=== PATIENT | male | born 1945 | race Caucasian/White ===

== ENCOUNTER 2019-11-10 | Emergency (ER) | payer MEDICARE ==
[2019-11-10] MEDS ORDERED: HYDROCO/APAP1 TA9 PO (14:29)
[2019-11-10] MEDS ORDERED: MOTRIN400 MG PO (15:48)
== END 2019-11-10 14:30 | disposition home or self-care (01) ==
PROC: 2W3QX1Z Immobilization of Right Lower Leg using Splint (ICD-10-PCS; principal; 2019-11-10)
DX: S82.831A Other fracture of upper and lower end of right fibula, initial encounter for closed fracture (principal); S82.54XA Nondisplaced fracture of medial malleolus of right tibia, initial encounter for closed fracture; W01.0XXA Fall on same level from slipping, tripping and stumbling without subsequent striking against object, initial encounter

== ENCOUNTER 2019-11-14 | Emergency (ER) | payer MEDICARE ==
[~2019-11-14] MED LIST: HYDROCO/APAP1 TA9 PO; MOTRIN400 MG PO
== END 2019-11-14 19:02 | disposition home or self-care (01) ==
DX: S82.851A Displaced trimalleolar fracture of right lower leg, initial encounter for closed fracture (principal); X50.0XXA Overexertion from strenuous movement or load, initial encounter; X50.9XXA Other and unspecified overexertion or strenuous movements or postures, initial encounter; Y93.89 Activity, other specified; Y92.009 Unspecified place in unspecified non-institutional (private) residence as the place of occurrence of the external cause

== ENCOUNTER 2020-09-18 16:53 | Observation (INO) | payer MEDICARE ==
[~2020-09-18] VITALS: Ht 170.2 cm; Wt 83.1 kg
--- NOTE | 2020-09-18 16:53 | NUR ---
PT ARRIVED WITH MUFFLED VOICE BECAUSE LIPS AND RIGHT SIDE OF MOUTH WAS SWOLLEN. SKIN IS TAUT FROM THE SWELLING. PT HAS HIVES ALL OVER BODY. PT AMBULATED TO ROOM WITH STEADY GAIT. AIRWAY PATENT SOLU MEDROL 125 MG IV 1700 BENADRYL 50 MG IV 1700 EPI SQ 0.3 ML 1705 PEPSID 40 MG IV 1700 PT AOX4. STATES THAT HE IS NOT SURE WHAT CAUSED HIS REACTION. PT SHOWED ME A LIST THAT DID NOT CONTAIN HIS BP MEDS. WILL CALL PHARMACY TO CLARIFY MEDS.
[2020-09-18] MEDS ORDERED: LISINOPRIL20 MG PO (17:39)
--- NOTE | 2020-09-18 18:19 | NUR ---
Reassessment of patient completed. No distress noted.
--- NOTE | 2020-09-18 19:03 | NUR ---
PT HAS REFUSED TO BE TRANSFERED FROM [facility] HE IS WILLING TO BE ADMITTED HERE BUT OTHERWISE HE IS LEAVING [facility] AWARE I ADVISED HIM OF THE DANGERS AND HE IS WILLING TO ACCEPT THE OUTCOME
--- NOTE | 2020-09-18 19:47 | NUR ---
PATIENT UP TO BATHROOM WITHOUT ASSIST. AWARE OF ADMISSION AND PENDING TRANSPORT.
[2020-09-18 20:05] VITALS: BP 111/66
--- NOTE | 2020-09-18 20:13 | NUR ---
REPORT CALLED TO ICU PT TRANSPORTED TO ROOM 4 OF ICU
--- NOTE | 2020-09-18 21:15 | NUR ---
PT ARRIVED TO FLOOR AT [facility] AND WAS PLACED IN ICU4. PT WAS HOOKED UP TO TELE FOR MONITORING. IV SITE TO [facility], SALINE LOCKED. PT DENIES ANY SIGNIFICANT FAMILY HISTORY. PT DOES NOT HAVE ORDERS FOR ANY MEDICATIONS AT THIS TIME. CARDIAC, PULMONARY, AND GI ASSESSMENTS ARE NEGATIVE FOR COMPLICATIONS AT THIS TIME. NURSE COOKED PT A TV DINNER SINCE HE STATED HE HASN'T EATEN IN 2 DAYS. PT ON REGULAR DIET. PT RESTING QUIETLY IN BED. ALL NEEDS MET. BED IN THE LOWEST POSITION, CALL LIGHT WITHIN REACH, PT ADVISED ON ASKING FOR HELP WHEN NEEDED. WILL MONITOR
--- NOTE | 2020-09-18 23:02 | NUR ---
PT RESTING QUIETLY WITH EYES CLOSED, NO COMPLAINTS VOICED. CALL LIGHT WITHIN REACH, REDUCATED ON THE IMPORTANCE OF ASKING FOR HELP BEFORE AMBULATING. PT VERBALIZED UNDERSTANDING. WILL MONITOR.
[2020-09-19] VITALS: BP 109/71
--- NOTE | 2020-09-19 00:01 | NUR ---
NOTED THAT ADMITTING ORDER FOR BENADRYL IV NEEDED TO BE CLARIFIED. CALLED ADMITTING PHYSICIAN AND CLARIFIED BENADRYL 25MG IV Q6HRS PRN FOR SWELLING AND ITCHING. ORDER FAXED TO PHARMACY. PENDING CORRECTION TO MAR AT THIS TIME. PT DENIES NEED FOR BENDADRYL AT THIS TIME. WILL MONITOR.
--- NOTE | 2020-09-19 00:38 | NUR ---
PT COMPLAINED OF ITCHING OF THE FACE, UPPER LIP REMAINS SLIGHTLY SWOLLEN. ADMINSTERED IV BENADRYL PER ORDER. PT TOLERATED WELL. WILL MONITOR
--- NOTE | 2020-09-19 01:43 | NUR ---
Pt in bed comfortable at this time, pt is reporting he is having trouble sleeping. Nurse suggested some calming techniques and repositioning. PRN BENADRYL EFFECTIVE FOR ITCHING. WILL MONITOR.
--- NOTE | 2020-09-19 03:58 | NUR ---
PT IS RESTING QUIELY IN BED WITH EYES CLOSED. NO S/S OF DISTRESS NOTED. NO COMPLAINTS VOICED. SLIGHT SWELLING REMAINS TO UPPER LIP, AIRWAY IS PATENT. WILL MONITOR
[2020-09-19 04:00] VITALS: BP 96/63
[2020-09-19 05:03] LABS: HEMATOCRIT 39.9 % (39.0-50.0); HEMOGLOBIN 13.5 g/dl (14.0-18.0); IMMATURE GRANULOCYTES 0.7 % (0.0-5.0); MEAN CELL VOLUME 84.7 fL CALC (80.0-100.0); MEAN CORPUSCULAR HGB 28.7 pG CALC (26.0-32.0); MEAN CORPUSCULAR HGB CONC 33.8 g/dL CAL (32.0-36.0); NEUT# 4.68 thou/uL (1.82-7.42); RED BLOOD COUNT 4.71 mill/uL (4.70-6.10); RED CELL DISTRI WIDTH 13.2 % (11.5-15.5)
[2020-09-19 05:24] LABS: ANION GAP 15 (6-22 (CALC)); BUN 28 mg/dL (8-23); BUN/CREATININE RATIO 22 (12-20 (CALC)); CARBON DIOXIDE 20 mmol/l (22-30); CHLORIDE 102 mmol/l (95-108); CREATININE 1.3 mg/dL (0.7-1.3); GFR 54 ML/MIN (>=60 (CALC)); GFR FOR AFR.AMER. > 60 ML/MIN (>=60 (CALC)); POTASSIUM 4.9 mmol/l (3.5-5.1); SODIUM 131 mmol/l (137-146)
--- NOTE | 2020-09-19 05:50 | NUR ---
PT IN BED WITH HOB ELEVATED. NO COMPLAINTS VOICED. IN GREAT SPIRITS. SLIGHT SWELLING TO UPPER LIP REMAINS. IV TO RAC SALINE LOCKED. NEGATIVE GI ASSESSMENT, NEGATIVE PULMONARY ASSESSMENT, 1ST DEGREE CARDIAC BLOCK NOTED ON TELE. WILL MONITOR FOR ANY CHANGES IN CONDITION.
[2020-09-19 07:00] VITALS: BP 145/63
--- NOTE | 2020-09-19 07:30 | NUR ---
ASSESSMENT IS COMPLETED: IV SITE IS FREE FROM REDNESS OR EDEMA.HR IS REG,PULSES ARE STRONG X4, ABD IS SOFT WITH ACTIVE BS, BREATH SOUNDS ARE CLEAR, BILATERALLY, HAS SOME SWELLING NOTED ON UPPER LIP. PT STATES "IT IS MUCH BETTER THIS AM."
[2020-09-19 08:00] VITALS: BP 123/51
--- NOTE | 2020-09-19 08:30 | NUR ---
DR CHAPA IN TO VISIT WITH PT. WILL DISCHARGE PT HOME.
[2020-09-19 09:00] VITALS: BP 119/76; BP 151/69
--- NOTE | 2020-09-19 09:50 | NUR ---
IV SITE DISCONTINUED CATHETER INTACT NO REDNESS OR EDEMA. DISCHARGE INSTRUCTIONS GIVEN AND VERBALIZED UNDERSTANDING WILL CALL FOR HIS RIDE.
--- NOTE | 2020-09-19 10:25 | NUR ---
PT AMBULATED OFF THE UNIT WITH STAFF. NO DISTRESS NOTED. IV SITE IS FREE FROM REDNESS OR EDENA, Discharge instructions given. Patient verbalizes understanding of same. Discharged in stable condition via Ambulatory to Home with family. All belongings sent with pt.
== END 2020-09-19 10:00 | disposition home or self-care (01) ==
LOC: ED 16:53 → ED-I 18:50 → ED 18:58 → ICU 18:59
PROVIDERS: ADMIT Internal Medicine; ATTEND Internal Medicine
DX: T78.3XXA Angioneurotic edema, initial encounter (principal); I10 Essential (primary) hypertension; Z20.822 Contact with and (suspected) exposure to COVID-19
CPT/HCPCS: J0171

== ENCOUNTER 2020-12-22 12:47 | Emergency (ER) | payer MEDICARE ==
[~2020-12-22] VITALS: Ht 182.9 cm; Wt 79.5 kg
[~2020-12-22 12:47] MED LIST changes: +LISINOPRIL20 MG PO
[2020-12-22] MEDS ORDERED: FAMOTIDINE20 M1 PO (13:17)
[2020-12-22] MEDS ORDERED: XYZAL ALLERGY 245 MG PO (13:18)
[2020-12-22] MEDS ORDERED: MEDDOSEPAK PO (15:11)
[2020-12-22 15:13] VITALS: BP 137/84
== END 2020-12-22 15:19 | disposition home or self-care (01) ==
LOC: ED 12:47
DX: L50.0 Allergic urticaria (principal); I10 Essential (primary) hypertension

== ENCOUNTER 2020-12-31 03:55 | Emergency (ER) | payer MEDICARE ==
[~2020-12-31] VITALS: Ht 182.9 cm; Wt 80.0 kg
[~2020-12-31 03:55] MED LIST changes: +FAMOTIDINE20 M1 PO; +MEDDOSEPAK PO; +XYZAL ALLERGY 245 MG PO
[2020-12-31] MEDS ORDERED: BENADRYL 50MG C50 MG PO (06:35)
[2020-12-31 06:37] VITALS: BP 130/82
== END 2020-12-31 06:45 | disposition home or self-care (01) ==
LOC: ED 03:55
DX: L50.0 Allergic urticaria (principal); I10 Essential (primary) hypertension

== ENCOUNTER 2021-12-18 09:11 | Emergency (ER) | payer MEDICARE, MEDICAID ==
[~2021-12-18] VITALS: Ht 182.9 cm; Wt 79.0 kg
[~2021-12-18 09:11] MED LIST changes: +BENADRYL 50MG C50 MG PO
[2021-12-18 09:33] VITALS: BP 120/76
[2021-12-18 10:00] VITALS: BP 116/77
[2021-12-18 10:25] VITALS: BP 121/95
[2021-12-18 10:31] VITALS: BP 121/68
[2021-12-18 11:00] VITALS: BP 127/79
[2021-12-18] MEDS ORDERED: ULTRAM50 MG PO (11:01)
[2021-12-18] MEDS ORDERED: MEDDOSEPAK PO (11:01)
[2021-12-18] MEDS ORDERED: FLEXERIL5 M1 PO (11:01)
[2021-12-18 11:30] VITALS: BP 124/80
== END 2021-12-18 11:38 | disposition home or self-care (01) ==
LOC: ED 09:11
DX: S30.0XXA Contusion of lower back and pelvis, initial encounter (principal); S39.012A Strain of muscle, fascia and tendon of lower back, initial encounter; M47.816 Spondylosis without myelopathy or radiculopathy, lumbar region; I10 Essential (primary) hypertension; W01.0XXA Fall on same level from slipping, tripping and stumbling without subsequent striking against object, initial encounter; Y92.410 Unspecified street and highway as the place of occurrence of the external cause

== ENCOUNTER 2021-12-23 16:25 | Emergency (ER) | payer MEDICARE ==
[2021-12-23] VITALS (12 sets, daily range): BP systolic 121–137; BP diastolic 77–89
[~2021-12-23] VITALS: Ht 182.9 cm; Wt 89.0 kg
[~2021-12-23 16:25] MED LIST changes: +FLEXERIL5 M1 PO; +ULTRAM50 MG PO
[2021-12-23 17:35] LABS: HEMATOCRIT 41.9 % (39.0-50.0); HEMOGLOBIN 13.9 g/dl (14.0-18.0); IMMATURE GRANULOCYTES 0.4 % (0.0-5.0); MEAN CORPUSCULAR HGB 30.5 pG CALC (26.0-32.0); MEAN CORPUSCULAR HGB CONC 33.2 g/dL CAL (32.0-36.0); NEUT# 8.16 thou/uL (1.82-7.42); RED BLOOD COUNT 4.55 mill/uL (4.70-6.10); RED CELL DISTRI WIDTH 13.1 % (11.5-15.5)
[2021-12-23 17:38] LABS: ALBUMIN 4.3 g/dL (3.2-5.0); ALKALINE PHOSPHATASE 46 u/l (38-126); BILIRUBIN, TOTAL 0.6 mg/dL (0.0-1.4); BUN 24 mg/dL (8-23); BUN/CREATININE RATIO 22 (12-20 (CALC)); CHLORIDE 106 mmol/l (95-108); CREATININE 1.1 mg/dL (0.7-1.3); GFR > 60 ML/MIN (>=60 (CALC)); GFR FOR AFR.AMER. > 60 ML/MIN (>=60 (CALC)); POTASSIUM 4.6 mmol/l (3.5-5.1); SGOT/AST 26 u/l (19-48); TOTAL PROTEIN 7.8 g/dL (6.3-8.2)
[2021-12-23 17:43] LABS: ANION GAP 13 (6-22 (CALC)); CARBON DIOXIDE 25 mmol/l (22-30); SODIUM 139 mmol/l (137-146)
[2021-12-23 18:00] LABS: MEAN CELL VOLUME 92.1 fL CALC (80.0-100.0)
== END 2021-12-23 21:40 | disposition short-term general hospital (02) ==
LOC: ED 16:25
PROVIDERS: Family Medicine
DX: R53.1 Weakness (principal); R20.2 Paresthesia of skin; Z20.828 Contact with and (suspected) exposure to other viral communicable diseases; I10 Essential (primary) hypertension; S39.92XA Unspecified injury of lower back, initial encounter; W18.30XA Fall on same level, unspecified, initial encounter; Z87.891 Personal history of nicotine dependence

== ENCOUNTER 2022-01-23 00:37 | Observation (INO) | payer MEDICARE ==
[2022-01-23] VITALS (9 sets, daily range): BP systolic 133–185; BP diastolic 93–103
[~2022-01-23] VITALS: Ht 182.9 cm; Wt 80.0 kg
--- NOTE | 2022-01-23 00:38 | NUR ---
PT TO ROOM 14 FROM EMS. NO DISTRESS NOTED. ASPEN COLLAR IN PLACE. PT REPORTS RECENT SURGERIES WITH POOR PAIN CONTROL FOR 1 WEEK. PT REPORTS NERVE PAIN THAT IS WORSE TODAY. PT REPORTS THAT HE LIVES ALONE AND HAS FREQUENT FALLS WHEN ATTEMTING TO USE HUS WALKER.
[2022-01-23] MEDS ORDERED: NEURONTIN300 MG PO (01:01)
--- NOTE | 2022-01-23 01:10 | NUR ---
PHYSICIAN NOTIFIED THAT PT REPORTS THAT HE FEELS LIKE HE NEEDS TO GO BACK TO REHAB BECAUSE HE IS FALLING TOO MUCH AT HOME. PT ALSO REFUSED GABAPENTIN STATING, "THAT'S THE SAME BS I TOOK AT HOME. GET IT OUT OF HERE. I DON'T WANT ANYMORE OF THAT STUFF. IT DOESN'T WORK." PT REPORTS THAT HE TOOK 4 TABS AT [facility] AND IT DIDN'T WORK. ATTEMPTED TO EDUCAQTE ON MEDICATION COMPLIANCE AND USE OF GABAPENTIN. PT NOT RECEPTIVE TO TEACHING AT THIS TIME.
[2022-01-23 01:13] LABS: HEMATOCRIT 37.7 % (39.0-50.0); HEMOGLOBIN 12.5 g/dl (14.0-18.0); IMMATURE GRANULOCYTES 1.2 % (0.0-5.0); MEAN CELL VOLUME 88.1 fL CALC (80.0-100.0); MEAN CORPUSCULAR HGB 29.2 pG CALC (26.0-32.0); MEAN CORPUSCULAR HGB CONC 33.2 g/dL CAL (32.0-36.0); NEUT# 5.53 thou/uL (1.82-7.42); RED BLOOD COUNT 4.28 mill/uL (4.70-6.10); RED CELL DISTRI WIDTH 12.5 % (11.5-15.5)
[2022-01-23 01:32] LABS: ALBUMIN 4.1 g/dL (3.2-5.0); ALKALINE PHOSPHATASE 51 u/l (38-126); ANION GAP 17 (6-22 (CALC)); BUN 14 mg/dL (8-23); BUN/CREATININE RATIO 16 (12-20 (CALC)); C-REACTIVE PROTEIN 1.4 mg/dL (0-0.9); CARBON DIOXIDE 22 mmol/l (22-30); CHLORIDE 101 mmol/l (95-108); CPK 61 u/l (52-200); CREATININE 0.9 mg/dL (0.7-1.3); GFR FOR AFR.AMER. > 60 ML/MIN (>=60 (CALC)); GFR OTHER RACES > 60 ML/MIN (>=60 (CALC)); MAGNESIUM 1.6 mg/dL (1.6-2.3); POTASSIUM 3.9 mmol/l (3.5-5.1); SGOT/AST 20 u/l (19-48); SODIUM 135 mmol/l (137-146); TOTAL PROTEIN 7.6 g/dL (6.3-8.2)
[2022-01-23 01:37] LABS: MYOGLOBIN 28 ng/mL (0 - 121)
[2022-01-23 01:39] LABS: BILIRUBIN, TOTAL 0.2 mg/dL (0.0-1.4)
--- NOTE | 2022-01-23 01:45 | NUR ---
PT REPORTS PAIN TO EXTREMITIES RESOLVED, BUT PAIN REMAINS TO RIGHT SHOULDER. WARM PACK AND WARM BLANKET PLACED TO AREA. PT REPORTS NO RELIEF FROM ICE PACK AT HOME.
[2022-01-23 02:00] LABS: TSH, 3RD GENERATION 2.19 uIU/mL (0.47 - 4.68)
--- NOTE | 2022-01-23 02:10 | NUR ---
AWAITING URINE SPECIMEN. WATER GIVEN.
--- NOTE | 2022-01-23 02:30 | NUR ---
PT REPORTS RELIEF FROM HOT PACK PAIN 5/10 TO RIGHT SHOULDER. PT REPORTS THAT PAIN TO RIGHT SHOULDER HAS NOT GONE BELOW 5/10 SINCE HIS SURGERY.
--- NOTE | 2022-01-23 02:59 | NUR ---
HOT PACK TO RIGHT SHOULDER.
--- NOTE | 2022-01-23 03:00 | NUR ---
PT AGREES WITH PLAN FOR ADMISSION. Admission Note Report Given to: LARISSA GILMORE Transported by: Wheelchair X Stretcher Transported with: X Nurse Transporter X Patent IV O2 Judge Clerk Location: X ICU MS2
[2022-01-23 03:13] LABS: URINE BILIRUBIN - DIPSTICK NEGATIVE (NEGATIVE); URINE BLOOD DIPSTICK NEGATIVE (NEGATIVE); URINE COLOR YELLOW; URINE GLUCOSE - DIPSTICK NEGATIVE (NEGATIVE); URINE KETONE NEGATIVE (NEGATIVE); URINE LEUK ESTERASE NEGATIVE (NEGATIVE); URINE PH 6.5 (4.5-8.0); URINE PROTEIN - DIPSTICK NEGATIVE (NEG-TRACE); URINE SPECIFIC GRAVITY <=1.005; URINE UROBILINOGEN - DIPSTICK 0.2 E.U./dL (0.2)
[2022-01-23 03:17] LABS: URINE NITRITE - DIPSTICK NEGATIVE (Negative)
--- NOTE | 2022-01-23 08:35 | NUR ---
PT SITTING ON BED; A&O X3. EVEN AND UNLABORED RESPIRATIONS; CLEAR LUNG SOUNDS UPON AUSCULTATION. ACTIVE BOWEL SOUNDS X4 QUADRANTS. IV SITE HEALTHY AND PATENT. NO DISTRESS NOTED. SAFETY PRECAUTIONS IN PLACE WITH CALL LIGHT IN PLACE.
--- NOTE | 2022-01-23 10:43 | NUR ---
PT IN RADIOLOGY FOR MRI.
--- NOTE | 2022-01-23 11:01 | NUR ---
PT BACK FROM RADIOLOGY.
--- NOTE | 2022-01-23 12:28 | NUR ---
PT IN HIGH JORDAN'S; PT C/O PAIN ON RIGHT SHOULDER AND RIGHT ARM LEVEL 9/10; ADMINISTERED PAIN MED PER EMAR. SAFETY PRECAUTIONS IN PLACE WITH CALL LIGHT IN REACH.
--- NOTE | 2022-01-23 12:33 | NUR ---
Pt off of floor at 10:40 am. Will reattempt for PT eval when available.
[2022-01-23] MEDS ORDERED: LORTAB 1010 MG PO (13:03)
[2022-01-23] MEDS ORDERED: VENLAFAXINE HY225 MG PO (13:05)
[2022-01-23] MEDS ORDERED: OXAYDO5 MG PO (13:07)
[2022-01-23] MEDS ORDERED: CYCLOBENZAPRINE10 MG PO (13:09)
[2022-01-23] MEDS ORDERED: FAMOTIDINE20 M3 PO (13:10)
[2022-01-23] MEDS ORDERED: ACYCLOVIR800 MG PO ×2 (13:13→13:46)
[2022-01-23] MEDS ORDERED: VENLAFAXINE HYD75 M1 PO (13:18)
[2022-01-23] MEDS ORDERED: LOSARTAN POTAS100 MG PO (13:21)
[2022-01-23] MEDS ORDERED: MEDROL4 M1 PO (13:31)
[2022-01-23] MEDS ORDERED: TRAMADOL HYDROC50 M1 PO (13:36)
[2022-01-23] MEDS ORDERED: ALENDRONATE SOD70 MG PO (13:39)
[2022-01-23] MEDS ORDERED: TRIAMCINOLON0.5 % EX (13:48)
--- NOTE | 2022-01-23 16:00 | NUR ---
PT RESTING WITH EYES CLOSED. NO DISTRESS OR PAIN NOTED. NO NEEDS AT THE TIME. SAFETY PRECAUTIONS IN PLACE WITH CALL LIGHT IN REACH.
--- NOTE | 2022-01-23 18:25 | NUR ---
PT C/O PAIN ON RIGHT ARM AND SHOULDER, LEVEL 8/10; ADMINISTERED PAIN MED PER EMAR. SAFETY PRECAUTIONS IN PLACE WITH CALL LIGHT IN REACH.
--- NOTE | 2022-01-23 19:05 | NUR ---
REPORT RECEIVED FROM Hamida HERNANDEZ LPN
--- NOTE | 2022-01-23 20:51 | NUR ---
PATIENT STATES THAT HE WILL NOT BE TAKING ANY BLOOD PRESSURE MEDICINE BECAUSE IT DOESNT WORK AND HE DOES NOT HAVE HIGH BLOOD PRESSURE. PATIENT DECLINES ANY EDUCATION REGARDING MEDICATION INDICATION OR ADMINISTRATION.
--- NOTE | 2022-01-24 01:41 | NUR ---
PATIENT COMPLAINING OF HIS "CHEST HURTING" STAT EKG AND TROPONIN ORDERED. PATIENT. Wendie URIEL NOTIFIED OF STAT EKG, Latasha CONTRERAS NOTIFIED OF STAT TROPONIN.
--- NOTE | 2022-01-24 01:43 | NUR ---
Hamida TRENT DOWN TO ER FOR TELE MONITOR.
--- NOTE | 2022-01-24 01:49 | NUR ---
Latasha CONTRERAS IN TO DRAW Jame ZHAO RRT IN TO PERFORM EKG. CALL TO ER REGARDING PATIENTS STATUS ON TELE. SR WITH LBBB.
[2022-01-24 04:37] VITALS: BP 152/91
[2022-01-24 05:27] LABS: HEMATOCRIT 38.6 % (39.0-50.0); IMMATURE GRANULOCYTES 1.7 % (0.0-5.0); MEAN CELL VOLUME 88.3 fL CALC (80.0-100.0); MEAN CORPUSCULAR HGB 29.7 pG CALC (26.0-32.0); MEAN CORPUSCULAR HGB CONC 33.7 g/dL CAL (32.0-36.0); NEUT# 4.78 thou/uL (1.82-7.42); RED BLOOD COUNT 4.37 mill/uL (4.70-6.10); RED CELL DISTRI WIDTH 12.5 % (11.5-15.5)
--- NOTE | 2022-01-24 05:30 | NUR ---
PATIENT CONTINUES TO SAY THE MD DOES NOT KNOW WHAT HE IS DOING. PATIENT ADAMANT REGADING PAIN MEDICATIONS, SATTES THEY GAVE HIM WAY MORE AT REHAB AND HE WANTS MORE. PATIENT SAYS WE DO NOT KNOW WHAT WE ARE DOING BECAUSE NONE OF OUR PAIN MANAGEMENT METHODS WORK.
[2022-01-24 05:46] LABS: ALBUMIN 3.9 g/dL (3.2-5.0); ALKALINE PHOSPHATASE 48 u/l (38-126); ANION GAP 11 (6-22 (CALC)); BILIRUBIN, TOTAL 0.2 mg/dL (0.0-1.4); BUN 14 mg/dL (8-23); BUN/CREATININE RATIO 16 (12-20 (CALC)); CARBON DIOXIDE 25 mmol/l (22-30); CHLORIDE 102 mmol/l (95-108); CREATININE 0.9 mg/dL (0.7-1.3); GFR FOR AFR.AMER. > 60 ML/MIN (>=60 (CALC)); GFR OTHER RACES > 60 ML/MIN (>=60 (CALC)); MAGNESIUM 1.6 mg/dL (1.6-2.3); POTASSIUM 3.7 mmol/l (3.5-5.1); SGOT/AST 21 u/l (19-48); SODIUM 134 mmol/l (137-146); TOTAL PROTEIN 7.3 g/dL (6.3-8.2)
--- NOTE | 2022-01-24 06:24 | NUR ---
PATIENT WRAPPED HAND BECAUSE HE SLEPT ON IT WRONG
[2022-01-24 06:37] VITALS: BP 159/93
[2022-01-24 06:40] VITALS: BP 159/93
--- NOTE | 2022-01-24 06:45 | NUR ---
RECEIVED REPORT FROM LARISSA SIFUENTES.
--- NOTE | 2022-01-24 06:50 | NUR ---
PATIENT IRRITABLE. COMPLAINING ABOUT PAIN MEDS BEING LATE. ADVISED PATIENT WRITTER WAS THE WAY TO THE ROOM. THREATENING STAFF TO MAKE A SCENE, PHOTO STYLIST ON FLOOR.
--- NOTE | 2022-01-24 09:05 | NUR ---
PT SITTING ON RECLINER; A&O X3. EVEN AND UNLABORED RESPIRATIONS; CLEAR LUNG SOUNDS UPON AUSCULTATION. TELEMETRY IN PLACE WITH LAST READING SR-84. IV SITE HEALTHY AND PATENT. ACTIVE BOWEL SOUNDS X4 QUADRANTS. PT C/O PAIN ON RIGHT ARM AND RIGHT SHOULDER, LEVEL 8/10; ADMINISTERED PAIN MED PER EMAR. SAFETY PRECAUTIONS IN PLACE WITH CALL LIGHT IN REACH.
[2022-01-24 10:35] VITALS: BP 132/70
--- NOTE | 2022-01-24 11:33 | NUR ---
Pt seen this am for treatment. He was resting in bed supine. He was cooperative with treatment and had questions which he was referred to MD who was in process of doing rounds. Pt moved supine to sit indep, sitting on edge of bed with with F+ balance. gait with RW 2 x 30' with min assist, pt was unsteady at times ranjan with turning. LE ex performed including quad/glut set with 5 sec hold x 10, heelsides, hip abd/add, SAQ, LAQ 2 x 10 reps. BP 148/95 to 151/99 HR 74 to 92, 02sats 96-98%.. Pt was left resting in recliner. A- Pt with LOB using RW at times, at high risk for falls, poor safety skills noted. [facility] E[facility]. P- Will follow as inpt to improve safety skills and mobility.
--- NOTE | 2022-01-24 12:30 | NUR ---
PT SITTING ON HIGH JORDAN'S ON BED; HAVING LUNCH. NO DISTRESS OR PAIN NOTED. SAFETY PRECAUTIONS IN PLACE WITH CALL LIGHT IN REACH.
[2022-01-24] MEDS ORDERED: LORTAB 1010 MG PO (13:03)
[2022-01-24 14:56] VITALS: BP 134/87
--- NOTE | 2022-01-24 15:23 | NUR ---
PT C/O PAIN ON RIGHT ARM AND SHOULDER, LEVEL 8/10; ADMINISTERED PAIN MEDICATION PER EMAR. SAFETY PRECAUTION SIN PLACE WITH CALL LIGHT IN REACH.
--- NOTE | 2022-01-24 15:30 | NUR ---
PT EDUCATED ON D/C INSTRUCTIONS. IV REMOVE, PT TOLERATED WELL. PT TELEMETRY BOX REMOVED, ER NOTIFIED OF SAME.
--- NOTE | 2022-01-24 15:35 | NUR ---
Discharge instructions given. Patient verbalizes understanding of same. Discharged in stable condition via Stretcher to *Other with *Other. All belongings sent with pt. pt left @[phone].
== END 2022-01-24 15:35 ==
LOC: ED 00:37 → MS2 02:33
PROVIDERS: Family Medicine; Nurse Practitioner; ADMIT Internal Medicine; ATTEND Internal Medicine
DX: M47.12 Other spondylosis with myelopathy, cervical region (principal); I10 Essential (primary) hypertension; Z98.1 Arthrodesis status; Z91.81 History of falling; Z91.19 Patient's noncompliance with other medical treatment and regimen; Z20.822 Contact with and (suspected) exposure to COVID-19
CPT/HCPCS: A9579; J0131; J1650

== ENCOUNTER 2022-10-14 08:12 | Emergency (ER) | payer MEDICARE ==
[~2022-10-14] VITALS: Ht 182.9 cm; Wt 71.2 kg
[~2022-10-14 08:12] MED LIST changes: +ACYCLOVIR800 MG PO; +ALENDRONATE SOD70 MG PO; +CYCLOBENZAPRINE10 MG PO; +FAMOTIDINE20 M3 PO; +LORTAB 1010 MG PO; +LOSARTAN POTAS100 MG PO; +MEDROL4 M1 PO; +NEURONTIN300 MG PO; +OXAYDO5 MG PO; +TRAMADOL HYDROC50 M1 PO; +TRIAMCINOLON0.5 % EX; +VENLAFAXINE HY225 MG PO; +VENLAFAXINE HYD75 M1 PO
[2022-10-14 08:19] VITALS: BP 147/90
[2022-10-14] MEDS ORDERED: BACTRIM DS1 TAB PO (08:26)
[2022-10-14] MEDS ORDERED: OMNI-PAC300 MG PO (08:26)
[2022-10-14 08:30] VITALS: BP 145/86
[2022-10-14 09:01] VITALS: BP 122/69
[2022-10-14 09:30] VITALS: BP 150/98
[2022-10-14] MEDS ORDERED: TRAMADOL HYDROC50 M1 PO (10:24)
[2022-10-14 10:30] VITALS: BP 150/98
== END 2022-10-14 10:35 | disposition home or self-care (01) ==
LOC: ED 08:12
DX: S52.021A Displaced fracture of olecranon process without intraarticular extension of right ulna, initial encounter for closed fracture (principal); L03.113 Cellulitis of right upper limb; I10 Essential (primary) hypertension; W18.30XA Fall on same level, unspecified, initial encounter; Y92.410 Unspecified street and highway as the place of occurrence of the external cause

== ENCOUNTER 2023-01-16 12:37 | Emergency (ER) | payer MEDICARE ==
[~2023-01-16] VITALS: Ht 182.9 cm; Wt 75.7 kg
[~2023-01-16 12:37] MED LIST changes: +BACTRIM DS1 TAB PO; +OMNI-PAC300 MG PO
[2023-01-16 12:45] VITALS: BP 110/63
[2023-01-16 13:00] VITALS: BP 116/69
[2023-01-16 13:09] LABS: BASO% 0.3 % (0-3); EOS% 4.9 % (0-8); HEMATOCRIT 32.7 % (39.0-50.0); IMMATURE GRANULOCYTES 0.2 % (0.0-5.0); LYMPH% 18.1 % (15-41); MEAN CELL VOLUME 87.4 fL CALC (80.0-100.0); MEAN CORPUSCULAR HGB 28.3 pG CALC (26.0-32.0); MEAN CORPUSCULAR HGB CONC 32.4 g/dL CAL (32.0-36.0); MONO% 9.9 % (2-13); NEUT# 6.54 thou/uL (1.82-7.42); NEUT% 66.6 % (42-76); RED BLOOD COUNT 3.74 mill/uL (4.70-6.10); RED CELL DISTRI WIDTH 14.5 % (11.5-15.5)
[2023-01-16 13:12] LABS: HEMOGLOBIN 10.6 g/dl (14.0-18.0)
[2023-01-16 13:18] LABS: ALBUMIN 3.9 g/dL (3.2-5.0); BILIRUBIN, TOTAL 0.1 mg/dL (0.2-1.3); CREATININE 1.5 mg/dL (0.7-1.3); POTASSIUM 4.5 mmol/l (3.5-5.1); TOTAL PROTEIN 6.5 g/dL (6.3-8.2)
[2023-01-16 13:31] VITALS: BP 111/73
[2023-01-16] MEDS ORDERED: PREDNISONE20 MG PO (13:58)
[2023-01-16 14:01] VITALS: BP 101/73
[2023-01-16 14:18] VITALS: BP 101/73
== END 2023-01-16 14:31 | disposition home or self-care (01) ==
LOC: ED 12:37
PROVIDERS: Nurse Practitioner
DX: M10.072 Idiopathic gout, left ankle and foot (principal); I10 Essential (primary) hypertension

== ENCOUNTER 2024-09-23 01:00 | Emergency (ER) | payer MEDICARE ==
[2024-09-23] VITALS (8 sets, daily range): BP systolic 87–145; BP diastolic 66–88
[~2024-09-23] VITALS: Ht 182.9 cm; Wt 70.0 kg
[~2024-09-23 01:00] MED LIST changes: +PREDNISONE20 MG PO
[2024-09-23] MEDS ORDERED: IPRATROPIUM-Albuterol 0.5MG-2.5MG/3 ML IN STA (01:05)
[2024-09-23] MEDS ORDERED: IBUPROFEN 600 MG/TAB PO ONE (01:10)
[2024-09-23] MEDS ORDERED: guaiFENesin-CODEINE 200-20 MG/10 ML UDC PO ONE (01:10)
[2024-09-23] MEDS ORDERED: SODIUM CHLORIDE 0.9% 1,000 ML IV ONE (01:10)
[2024-09-23 01:30] LABS: BASO% 0.2 % (0-3); EOS% 0.9 % (0-8); HEMATOCRIT 30.2 % (39.0-50.0); HEMOGLOBIN 9.6 g/dl (14.0-18.0); IMMATURE GRANULOCYTES 2.2 % (0.0-5.0); LYMPH% 16.8 % (15-41); MEAN CELL VOLUME 90.1 fL CALC (80.0-100.0); MEAN CORPUSCULAR HGB 28.7 pG CALC (26.0-32.0); MEAN CORPUSCULAR HGB CONC 31.8 g/dL CAL (32.0-36.0); MONO% 10.9 % (2-13); NEUT# 8.33 thou/uL (1.82-7.42); RED BLOOD COUNT 3.35 mill/uL (4.70-6.10); RED CELL DISTRI WIDTH 13.3 % (11.5-15.5)
[2024-09-23 01:39] LABS: ALBUMIN 3.8 g/dL (3.2-5.0); CREATININE 1.2 mg/dL (0.7-1.3); TOTAL PROTEIN 7.4 g/dL (6.3-8.2)
[2024-09-23 01:51] LABS: BILIRUBIN, TOTAL 0.6 mg/dL (0.2-1.3)
[2024-09-23] MEDS ORDERED: VIBRAMYCIN100 M2 PO (02:59)
[2024-09-23] MEDS ORDERED: HYDROCODONE POLISTIR PO (02:59)
== END 2024-09-23 03:22 | disposition home or self-care (01) ==
LOC: ED 01:00
PROVIDERS: Family Medicine
DX: J40 Bronchitis, not specified as acute or chronic (principal); I10 Essential (primary) hypertension; Z20.822 Contact with and (suspected) exposure to COVID-19